=== PATIENT | female | born 1955 | race Caucasian/White ===

== ENCOUNTER 2018-04-24 07:35 | Day surgery (SDC) | payer OTHER ==
[~2018-04-24 07:35] MED LIST: ALBU90OI INH
[2018-04-27 15:13] LABS: Performing Lab SYMBIODX; Test Name TISSUE BLOCK
== END 2018-04-24 23:13 | disposition home or self-care (01) ==
LOC: MOI US 07:35 → MOI MAM 08:00 → MOI US 23:13
PROVIDERS: Nurse Practitioner Family
DX: C50.911 Malignant neoplasm of unspecified site of right female breast (principal); Z17.1 Estrogen receptor negative status [ER-]
CPT/HCPCS: 19083; 77065; 88305; 88360; A4648

== ENCOUNTER 2018-05-08 08:05 | Day surgery (SDC) | payer OTHER ==
[~2018-05-08] VITALS: Ht 160 cm; Wt 90.7 kg
[~2018-05-08 08:05] MED LIST changes: +Flonase 0.05% N16 GM; +MONT10T PO
--- NOTE | 2018-05-08 10:05 | NUR ---
Ambulatory in Day Surgery History, Chart, Medications and Allergies reviewed before start of procedure.Lungs clear T/O to Auscultation. Patient confirms NPO status and agrees with scheduled surgery. Patient reports completing Chlorhexadine shower X2 prior to admission to hospital.Surgical site prepped with 2% Chlorhexidine cloth wipe. Patient States Post-Procedure ride home has been arranged.
--- NOTE | 2018-05-08 12:28 | NUR ---
05/08/18 1228 Kavon Love PT REPREPPED AND DRAPED AND FULL NEW STERILE SET UP AFTER VENTILATION DIFFICULTIES.
--- NOTE | 2018-05-08 15:48 | NUR ---
PATIENT WITH CONTINUOUS GOOD QUALITY DEEP BREATHING WITH FLUCTUATING SaO2 % READING, 94%-77%, GOOD COLOR, PINK CHEEKS, WARM TO THE TOUCH. AUSCULTATION TO LUNG HDZ REVEALS GOOD CLEAR AIR SOUNDS ON THE RIGHT AND WHAT SOUNDS LIKE BUBBLES ON THE LEFT, ESPECIALLY IN THE UPPER QUADRANT, DIFFICULT TO DETERMINE IF IT IS GASTRIC SOUNDS AT THIS TIME. PATIENT IN NO APPARENT DISTRESS AT THIS TIME, DENIES TIGHTNESS, O2 [address] AND PATIENT WITH GOOD RESPONSE, NOW MAINTAINING SaO2 AT 92-97%.
--- NOTE | 2018-05-08 15:58 | NUR ---
DRESSING ON RIGH BREAST AND R AXILLA IN PLACE, DRY, NO BLOOD NOTED AT THIS TIME. DRESSING IS BREAST BINDER OVER 4X4 GAUZE.
--- NOTE | 2018-05-08 16:08 | NUR ---
NORCO 5/325 1 TABLET PO ADMINISTERED.
--- NOTE | 2018-05-08 16:37 | NUR ---
PATIENT WITH GOOD OXYGENATION, STEADY AND ABLE TO DRESS WITHOUT DIFFICULTY. D/C HOME VIA WC IN THE CARE OF HER BEST FRIEND IN NO APPARENT DISTRESS.
== END 2018-05-08 16:39 | disposition home or self-care (01) ==
LOC: NM 08:05 → ORSCMMR 08:05 → NM 09:30
PROVIDERS: Surgery
PROC: 0HBT0ZZ Excision of Right Breast, Open Approach (ICD-10-PCS; principal; 2018-05-08 11:00)
PROC: 07B50ZX Excision of Right Axillary Lymphatic, Open Approach, Diagnostic (ICD-10-PCS; principal; 2018-05-08 11:00)
DX: C50.411 Malignant neoplasm of upper-outer quadrant of right female breast (principal); C77.3 Secondary and unspecified malignant neoplasm of axilla and upper limb lymph nodes; J44.9 Chronic obstructive pulmonary disease, unspecified; Z87.891 Personal history of nicotine dependence
CPT/HCPCS: 38792; 88307; 88341; 88342; A9270-GY; A9520; J0690; J1100; J2250; J2405; J2710; J3010; J7120; Q9968

== ENCOUNTER → 2019-02-13 | Outpatient (CLI) | payer OTHER ==
[2019-02-19 14:36] LABS: Stool Occult Bld Immuno 1 Negative (NEGATIVE)
== END | disposition home or self-care (01) ==
LOC: LAB 17:10 → LAB SHORT 17:10
PROVIDERS: Registered Nurse
DX: Z12.11 Encounter for screening for malignant neoplasm of colon (principal)
CPT/HCPCS: G0328

== ENCOUNTER 2019-04-20 05:34 | Emergency (ER) | payer OTHER ==
[~2019-04-20] VITALS: Ht 165.1 cm; Wt 89.4 kg
[2019-04-20] MEDS ORDERED: PROZAC20 MG PO (05:55)
[2019-04-20] MEDS ORDERED: [UNRECOGNIZED DRUG - REMARK] PO (05:56)
[2019-04-20 06:13] LABS: BASOPHILS ABSOLUTE AUTO 0.09 K/mm3 (0.00-0.23); BASOPHILS PERCENT AUTO 1 % (0-2); EOSINOPHILS PERCENT AUTO 3 % (0-6); Hematocrit 45.7 % (33.0-51.0); Hemoglobin 14.4 g/dL (11.5-16.0); IMMATURE GRAN ABSOLUTE AUTO 0.03 K/mm3 (0.00-0.10); IMMATURE GRAN PERCENT AUTO 0 % (0-1); LYMPHOCYTES ABSOLUTE AUTO 2.11 K/mm3 (0.84-5.20); LYMPHOCYTES PERCENT AUTO 32 % (21-46); MONOCYTES ABSOLUTE AUTO 0.32 K/mm3 (0.16-1.47); MONOCYTES PERCENT AUTO 5 % (4-13); Mean Corpuscular HGB 28.3 pg (26.0-34.0); Mean Corpuscular HGB Conc 31.5 g/dL (31.5-36.5); Mean Corpuscular Volume 90 fL (80-100); NEUTROPHILS ABSOLUTE AUTO 3.92 K/mm3 (1.96-9.15); NEUTROPHILS PERCENT AUTO 59 % (41-73); Platelet Count 321 K/mm3 (150-400); RDW Coefficient Variation 12.6 % (11.7-14.2); RDW Standard Deviation 41.9 fL (35.1-46.3); Red Blood Cell Count 5.08 M/mm3 (3.80-5.20); White Blood Cell Count 6.67 K/mm3 (4.00-11.30)
[2019-04-20 06:27] LABS: Alanine Aminotransfer (ALT/SGP 16 U/L (12-78); Albumin, Blood 3.5 g/dL (3.4-5.0); Alk Phos 85 U/L (50-136); Anion Gap 5 mmol/L (6-16); Aspartate Aminotrans (AST/SGOT 14 U/L (12-37); Bilirubin, Total 0.3 mg/dL (0.1-1.0); Blood Urea Nitrogen 19 mg/dL (8-24); Bun/Creatinine Ratio 30.4 (12.0-20.0); CO2, Blood 28 mmol/L (21-32); Calcium, Blood 8.5 mg/dL (8.5-10.1); Chloride, Blood 109 mmol/L (98-108); Creatinine, Blood 0.63 mg/dL (0.40-1.00); Globulin, Blood 3.5 g/dL (2.2-4.0); Glomerular Filtration Rate >60 (60-); Glucose, Blood 132 mg/dL (70-99); Potassium, Blood 4.1 mmol/L (3.5-5.5); Sodium, Blood 142 mmol/L (136-145)
[2019-04-20] MEDS ORDERED: Motion Sickness25 M1 PO (07:16)
== END 2019-04-20 09:09 | disposition home or self-care (01) ==
LOC: ER 05:34
PROVIDERS: Emergency Medicine
DX: R42 Dizziness and giddiness (principal); Z88.5 Allergy status to narcotic agent; Z91.048 Other nonmedicinal substance allergy status; Z79.899 Other long term (current) drug therapy; I10 Essential (primary) hypertension; J45.909 Unspecified asthma, uncomplicated; Z87.891 Personal history of nicotine dependence
CPT/HCPCS: 36415; 71046; 80053; 85025; 85379; 93005; 93010; 96360; 99285-25; J7030

== ENCOUNTER → 2019-07-08 | Outpatient (CLI) | payer OTHER ==
[~2019-07-08] MED LIST changes: +Motion Sickness25 M1 PO; +PROZAC20 MG PO; +Veetids 500500 MG PO; +[UNRECOGNIZED DRUG - REMARK] PO
== END | disposition home or self-care (01) ==
LOC: LAB SHORT 10:10 → LAB 10:10 → LAB FUT 02-10 11:25
DX: R42 Dizziness and giddiness (principal); R09.02 Hypoxemia
CPT/HCPCS: 36415

== ENCOUNTER 2019-07-11 06:30 | Emergency (ER) | payer OTHER ==
[~2019-07-11] VITALS: Ht 165.1 cm; Wt 89.8 kg
[~2019-07-11 06:30] MED LIST changes: -Veetids 500500 MG PO
[2019-07-11] MEDS ORDERED: Veetids 500500 MG PO (07:00)
== END 2019-07-11 07:08 | disposition home or self-care (01) ==
LOC: ER 06:30
DX: K08.89 Other specified disorders of teeth and supporting structures (principal); I10 Essential (primary) hypertension; J45.909 Unspecified asthma, uncomplicated; Z91.048 Other nonmedicinal substance allergy status; Z88.5 Allergy status to narcotic agent; Z79.899 Other long term (current) drug therapy; Z87.891 Personal history of nicotine dependence
CPT/HCPCS: 99282

== ENCOUNTER 2023-03-22 08:43 | Emergency (ER) | payer OTHER ==
[~2023-03-22] VITALS: Ht 165.1 cm; Wt 102.1 kg
[~2023-03-22 08:43] MED LIST changes: +Veetids 500500 MG PO
[2023-03-22] MEDS ORDERED: HYDCHL25 PO (09:39)
[2023-03-22 10:29] LABS: BASOPHILS ABSOLUTE AUTO 0.09 K/mm3 (0.00-0.23); BASOPHILS PERCENT AUTO 1 % (0-2); EOSINOPHILS ABSOLUTE AUTO 0.12 K/mm3 (0.00-0.68); EOSINOPHILS PERCENT AUTO 1 % (0-6); Hematocrit 47.9 % (33.0-51.0); Hemoglobin 15.5 g/dL (11.5-16.0); IMMATURE GRAN ABSOLUTE AUTO 0.02 K/mm3 (0.00-0.10); IMMATURE GRAN PERCENT AUTO 0 % (0-1); LYMPHOCYTES ABSOLUTE AUTO 1.82 K/mm3 (0.84-5.20); LYMPHOCYTES PERCENT AUTO 20 % (21-46); MONOCYTES ABSOLUTE AUTO 0.39 K/mm3 (0.16-1.47); MONOCYTES PERCENT AUTO 4 % (4-13); Mean Corpuscular HGB 28.1 pg (26.0-34.0); Mean Corpuscular HGB Conc 32.4 g/dL (31.5-36.5); Mean Corpuscular Volume 87 fL (80-100); Mean Platelet Volume 10.8 fL (9.1-12.4); NEUTROPHILS ABSOLUTE AUTO 6.61 K/mm3 (1.96-9.15); NEUTROPHILS PERCENT AUTO 73 % (41-73); Platelet Count 347 K/mm3 (150-400); RDW Coefficient Variation 12.7 % (11.7-14.2); RDW Standard Deviation 40.3 fL (35.1-46.3); Red Blood Cell Count 5.52 M/mm3 (3.80-5.20); White Blood Cell Count 9.05 K/mm3 (4.00-11.30)
[2023-03-22 10:48] LABS: Albumin, Blood 3.5 g/dL (3.4-5.0); Albumin/Globulin Ratio 0.9 (0.8-1.8); Bilirubin, Total 0.4 mg/dL (0.1-1.0); Bun/Creatinine Ratio 20.1 (12.0-20.0); Calcium, Blood 9.3 mg/dL (8.5-10.1); Creatinine, Blood 0.75 mg/dL (0.40-1.00); Globulin, Blood 4.1 g/dL (2.2-4.0); Magnesium, Blood 2.3 mg/dL (1.6-2.4); Potassium, Blood 4.1 mmol/L (3.5-5.5); Thyroid Stimulating Hormone 1.56 uIU/mL (0.360-4.800); Total Protein, Blood 7.6 g/dL (6.4-8.2)
[2023-03-22 11:01] VITALS: BP 191/78
== END 2023-03-22 11:25 | disposition home or self-care (01) ==
LOC: ER 08:43
PROVIDERS: Student in an Organized Health Care Education/Training Program
DX: I16.0 Hypertensive urgency (principal); I10 Essential (primary) hypertension; J45.909 Unspecified asthma, uncomplicated; Z88.5 Allergy status to narcotic agent; Z91.048 Other nonmedicinal substance allergy status; Z79.899 Other long term (current) drug therapy; Z87.891 Personal history of nicotine dependence
CPT/HCPCS: 36415; 80053; 83735; 84443; 85025; 93005; 93010; 96374; 99283-25; J0360